=== PATIENT | female | born 1995 | race Two or more races ===

== ENCOUNTER 2023-09-17 09:21 | Emergency (ER) | payer OTHER ==
[~2023-09-17] VITALS: Ht 147.3 cm; Wt 60.8 kg
[2023-09-17 11:43] LABS: URINE APPEARANCE Clear; URINE BILIRRUBIN Negative (NEGATIVE); URINE BLOOD Moderate; URINE COLOR Yellow; URINE GLUCOSE Negative (NEGATIVE); URINE LEUKOCYTE Trace; URINE NITRATE Negative; URINE PROTEIN Negative (NEGATIVE); URINE UROBILINOGEN 0.2 E.U./dl
[2023-09-17 11:47] LABS: HEMATOCRIT 37.6 % (36.0-45.00); HEMOGLOBIN 13.1 g/dL (12.0-15.00); MEAN CELL VOLUME 91.7 fL (80.00-100.00); MEAN CORPUSCULAR HEMOGLOBIN 31.8 pg (27.00-32.0); MEAN CORPUSCULAR HGB CONC 34.7 g/dl (32.0-36.0); PLATELET COUNT 219 K/uL (150-450); RED BLOOD COUNT 4.11 M/uL (4.00-6.00); RED CELL DISTRIBUTION WIDTH 13.2 % (11.5-14.5)
[2023-09-17 11:49] LABS: URINE BACTERIA 1440.1 uL (0.0-1933); URINE EPITHELIAL CELLS 23.4 uL (0.0-38.8); URINE RBC 20.6 uL (0.0-20.8); URINE WBC 10.6 uL (0.0-23.2)
[2023-09-17 12:24] LABS: CALCIUM 9.3 mg/dL (8.5-10.1); CREATININE SERUM 0.42 mg/dL (0.55-1.02); GFR 182.38; POTASSIUM 3.59 mEq/L (3.5-5.1)
== END 2023-09-17 13:41 | disposition home or self-care (01) ==
LOC: ER 09:22
PROVIDERS: Emergency Medicine
DX: O20.8 Other hemorrhage in early pregnancy (principal); Z3A.12 12 weeks gestation of pregnancy

== ENCOUNTER 2024-02-02 15:58 | Outpatient (CLI) | payer OTHER | END 2024-02-02 15:59 | disposition home or self-care (01) | LOC: PRENATAL 15:58 | PROVIDERS: ATTEND Obstetrics & Gynecology Maternal & Fetal Medicine | DX: O26.843 Uterine size-date discrepancy, third trimester (principal); O36.8130 Decreased fetal movements, third trimester, not applicable or unspecified; Z3A.32 32 weeks gestation of pregnancy ==

== ENCOUNTER 2024-03-27 21:30 | Outpatient (CLI) | payer OTHER ==
[2024-03-27 20:53] VITALS: BP 116/78
[2024-03-27] MEDS ORDERED: AMPICILLIN SODIUM 2,000 MG VIAL IV ONE (22:00)
[2024-03-27] MEDS ORDERED: RINGERS SOLUTION,LACTATED 1,000 ML IV SCH (22:00)
[2024-03-27] MEDS ORDERED: PRENATAL TABLE1 EAC1 PO (22:09)
[2024-03-27 22:21] LABS: PH,URINE 6.5 (5.0-8.0); URINE APPEARANCE Clear; URINE BILIRRUBIN Negative (NEGATIVE); URINE BLOOD Negative; URINE COLOR Yellow; URINE KETONE Trace (NEGATIVE); URINE LEUKOCYTE Negative; URINE NITRATE Negative; URINE PROTEIN Negative (NEGATIVE); URINE UROBILINOGEN 0.2 E.U./dl
[2024-03-27 22:22] LABS: HEMATOCRIT 36.9 % (36.0-45.00); HEMOGLOBIN 12.7 g/dL (12.0-15.00); MEAN CELL VOLUME 93.2 fL (80.00-100.00); MEAN CORPUSCULAR HGB CONC 34.4 g/dl (32.0-36.0); PLATELET COUNT 202 K/uL (150-450); RED BLOOD COUNT 3.97 M/uL (4.00-6.00); RED CELL DISTRIBUTION WIDTH 13.9 % (11.5-14.5)
[2024-03-27 22:25] LABS: URINE BACTERIA 442.2 uL (0.0-1933); URINE EPITHELIAL CELLS 16.8 uL (0.0-38.8); URINE WBC 11.7 uL (0.0-23.2)
[2024-03-27 22:28] LABS: URINE GLUCOSE 100 MG/DL (NEGATIVE); URINE RBC 1.5 uL (0.0-20.8)
[2024-03-28 00:04] VITALS: BP 99/55; O2SAT 100
[2024-03-28] MEDS ORDERED: AMPICILLIN SODIUM 1,000 MG VIAL IV SCH (01:00)
[2024-03-28 03:45] VITALS: BP 96/57
[2024-03-28 07:48] VITALS: BP 100/62
[2024-03-28 09:40] VITALS: BP 110/70
== END 2024-03-28 10:14 | disposition home or self-care (01) ==
LOC: OBS/DEL 21:30
PROVIDERS: ATTEND Obstetrics & Gynecology
DX: O47.1 False labor at or after 37 completed weeks of gestation (principal); Z3A.39 39 weeks gestation of pregnancy

== ENCOUNTER 2024-04-03 07:37 | Inpatient (IN) | payer OTHER ==
[2024-04-03] VITALS (9 sets, daily range): BP systolic 84–129; BP diastolic 60–79; O2SAT 99–100
[~2024-04-03] VITALS: Ht 177.8 cm; Wt 64.0 kg
[~2024-04-03 07:37] MED LIST: PRENATAL TABLE1 EAC1 PO
[2024-04-03 09:30] LABS: HEMATOCRIT 37.7 % (36.0-45.00); HEMOGLOBIN 12.9 g/dL (12.0-15.00); MEAN CELL VOLUME 93.6 fL (80.00-100.00); MEAN CORPUSCULAR HGB CONC 34.2 g/dl (32.0-36.0); PLATELET COUNT 201 K/uL (150-450); RED BLOOD COUNT 4.03 M/uL (4.00-6.00)
[2024-04-03 09:36] LABS: INR < 0.93; PARTIAL THROMBOPLASTIN TIME 25.1 SECONDS (22.0-34.0); PROTHROMBIN TIME 9.7 SECONDS (9.0-11.5)
[2024-04-03] MEDS ORDERED: MISOPROSTOL 25 MCG/4 ML GEL.W.APPL VAG STA (09:57)
[2024-04-03 10:17] LABS: BILIRUBIN TOTAL 0.31 mg/dL (0.3-1.2); CALCIUM 9.3 mg/dL (8.5-10.1); CREATININE SERUM 0.33 mg/dL (0.55-1.02); GFR 239.06; GLOBULINA 3.5 G/DL (2.4-3.5); POTASSIUM 4.04 mEq/L (3.5-5.1); TOTAL PROTEIN 6.5 gm/dL (6.4-8.2)
[2024-04-03] MEDS ORDERED: MORPHINE SULFATE 4 MG/ML CARTRIDGE IV ONE (17:15)
[2024-04-03] MEDS ORDERED: OXYTOCIN 500 ML IV SCH (18:15)
[2024-04-03] MEDS ORDERED: IBUprofen 400 MG TABLET PO PRN (21:00)
[2024-04-03] MEDS ORDERED: OXYTOCIN 1,000 ML IV SCH (21:45)
[2024-04-03] MEDS ORDERED: OXYTOCIN 10 UNITS/ML VIAL IM STA (21:45)
[2024-04-03] MEDS ORDERED: CHLORHEXIDINE GLUCONATE 120 ML BOTTLE TP SCH (21:45)
[2024-04-03] MEDS ORDERED: LIDOCAINE HCL 1% 10ML VIAL IJ ONE (22:15)
[2024-04-03] MEDS ORDERED: ERYTHROMYCIN BASE OPHT 1GM EACH TUBE OP ONE (22:15)
[2024-04-04 00:29] LABS: HEMATOCRIT 37.4 % (36.0-45.00); HEMOGLOBIN 12.6 g/dL (12.0-15.00); MEAN CELL VOLUME 93.7 fL (80.00-100.00); MEAN CORPUSCULAR HEMOGLOBIN 31.7 pg (27.00-32.0); MEAN CORPUSCULAR HGB CONC 33.8 g/dl (32.0-36.0); PLATELET COUNT 196 K/uL (150-450); RED BLOOD COUNT 3.99 M/uL (4.00-6.00); RED CELL DISTRIBUTION WIDTH 13.7 % (11.5-14.5)
[2024-04-04 02:47] VITALS: BP 95/65
[2024-04-04 08:47] VITALS: BP 109/74
[2024-04-04 16:00] VITALS: BP 101/67
[2024-04-04 20:00] VITALS: BP 108/70
[2024-04-05] VITALS: BP 110/75
[2024-04-05 08:00] VITALS: BP 105/65
== END 2024-04-05 17:30 | disposition home or self-care (01) | DRG 807 ==
LOC: LDR 07:37 → OB/GYN 19:54
PROVIDERS: ADMIT Obstetrics & Gynecology; ATTEND Obstetrics & Gynecology
PROC: 10E0XZZ Delivery of Products of Conception, External Approach (ICD-10-PCS; principal; 2024-04-03)
PROC: 0KQM0ZZ Repair Perineum Muscle, Open Approach (ICD-10-PCS; 2024-04-03)
PROC: 4A1HXCZ Monitoring of Products of Conception, Cardiac Rate, External Approach (ICD-10-PCS; 2024-04-03)
PROC: 3E033VJ Introduction of Other Hormone into Peripheral Vein, Percutaneous Approach (ICD-10-PCS; 2024-04-03)
PROC: 3E0P7VZ Introduction of Hormone into Female Reproductive, Via Natural or Artificial Opening (ICD-10-PCS; 2024-04-03)
DX: O70.1 Second degree perineal laceration during delivery (principal); Z37.0 Single live birth; Z3A.40 40 weeks gestation of pregnancy; Z20.822 Contact with and (suspected) exposure to COVID-19